=== PATIENT | female | born 1965 | race Caucasian/White ===

== ENCOUNTER → 2023-09-22 16:04 | Outpatient (BNVA) | payer BC, SELFPAY | PROVIDERS: PCP Nurse Practitioner Family; Visit Provider Specialist | DX: G31.84 Mild cognitive impairment of uncertain or unknown etiology (principal); R29.90 Unspecified symptoms and signs involving the nervous system; Z79.899 Other long term (current) drug therapy | CPT/HCPCS: 36415; 82607; 82746; 84443; 85651 ==

== ENCOUNTER 2023-10-24 14:29 | Outpatient (CLI) | payer OTHER, SELFPAY ==
--- NOTE | 2023-10-24 15:15 | MR_ITS ---
WS: [id number] MRI HEAD WITHOUT CONTRAST TECHNIQUE: Sagittal T1, T2 axial, T2 axial FLAIR, axial and coronal T1 images, axial susceptibility w eighted imaging, axial diffusion weighted images, and coronal T2 images were obtained. CLINICAL INFORMATION: G31.84 - Mild cognitive impairment of uncertain or unknow... COMPARISON: None. FINDINGS: No evidence of restricted diffusion to suggest acute ischemia. Ventricular system and basilar cistern s are patent. Mild small vessel changes. Mild parenchymal volume loss. Normal posterior fossa. Normal vascular flow voids at the skull base. No extra-axial fluid collections. No evidence of mass or mass effect. Mild mucosal thickening in the paranasal sinuses. Mastoid air cells are well aerated. Single tiny punctate focus of hemosiderin in the RIGHT basal ganglia. Normal optic chiasm and pituita ry infundibulum. Mild symmetric atrophy temporal lobes and hippocampal formations. IMPRESSION: 1. No evidence of restricted diffusion to suggest acute ischemia. 2. Mild small vessel changes with mild parenchymal volume loss. 3. Single punctate focus of hemosiderin in the RIGHT basal ganglia. 4. Normal optic chiasm and pituitary infundibulum. 5. Mild mucosal thickening in the paranasal sinuses. Mastoid air cells are well aerated.
== END 2023-10-24 14:30 | disposition home or self-care (01) ==
LOC: RAD 14:31
PROVIDERS: PCP Nurse Practitioner Family; Visit Provider Specialist
DX: G31.84 Mild cognitive impairment of uncertain or unknown etiology (principal); R29.90 Unspecified symptoms and signs involving the nervous system; I67.89 Other cerebrovascular disease
CPT/HCPCS: 70551

== ENCOUNTER → 2024-04-07 11:52 | Outpatient (BNVA) | payer BC, SELFPAY | PROVIDERS: PCP Nurse Practitioner Family; Visit Provider Specialist | DX: G31.84 Mild cognitive impairment of uncertain or unknown etiology (principal) | CPT/HCPCS: 36415; 82542 ==

== ENCOUNTER → 2024-07-29 15:01 | Outpatient (BNVA) | payer BC, SELFPAY | PROVIDERS: PCP Nurse Practitioner Family; Visit Provider Specialist | DX: G31.84 Mild cognitive impairment of uncertain or unknown etiology (principal) | CPT/HCPCS: 0346U; 36415 ==

== ENCOUNTER → 2024-10-29 12:36 | Outpatient (BNVA) | payer OTHER, SELFPAY | PROVIDERS: PCP Nurse Practitioner Family; Visit Provider Specialist | DX: G31.84 Mild cognitive impairment of uncertain or unknown etiology (principal); R29.90 Unspecified symptoms and signs involving the nervous system | CPT/HCPCS: 36415; 83520 ==

== ENCOUNTER 2025-03-16 14:21 | Outpatient (CLI) | payer OTHER, SELFPAY ==
--- NOTE | 2025-03-16 14:24 | MR_ITS ---
WS: [id number] MRI HEAD WITHOUT CONTRAST TECHNIQUE: Sagittal T1, T2 axial, T2 axial FLAIR, axial and coronal T1 images, axial susceptibility weighted imaging, axial diffusion weighted images, and coronal T2 images were obtained. CLINICAL INFORMATION: G31.84 - Mild cognitive impairment of uncertain or unknow... COMPARISON: MRI 10/24/2023 FINDINGS: No evidence of restricted diffusion to suggest acute ischemia. Ventricular system and basilar cisterns are patent. Normal posterior fossa. Normal vascular flow voids at the skull base. No extra-axial fluid collections. No evidence of mass or mass effect. Paranasal sinuses are well aerated. Small retention cysts in the LEFT maxillary sinus partially visualized. Mastoid air cells are well aerated. Normal posterior nasopharynx. Mild small vessel changes stable compared to previous. No significant progression. Mild parenchymal volume loss. Normal optic chiasm and pituitary infundibulum. Mild symmetric atrophy temporal lobes and hippocampal formations. Punctate focus of hemosiderin in the RIGHT basal ganglia better seen on the prior study. Susceptibility weighted images today degraded by motion artifact. MR/MR head wo con* [id number] IMPRESSION: 1. No significant changes compared to previous. 2. No restricted diffusion to suggest acute ischemia. 3. Mild small vessel changes with mild parenchymal volume loss appears stable. No significant progression. 4. Mild symmetric atrophy temporal lobes and hippocampal formations appear sta ble. 5. Single punctate focus of hemosiderin in the RIGHT basal ganglia better seen on the prior study. 6. No other acute findings.
== END 2025-03-16 14:22 | disposition home or self-care (01) ==
LOC: RAD 14:23
PROVIDERS: PCP Nurse Practitioner Family; Visit Provider Specialist
DX: G31.84 Mild cognitive impairment of uncertain or unknown etiology (principal); R93.0 Abnormal findings on diagnostic imaging of skull and head, not elsewhere classified; G31.89 Other specified degenerative diseases of nervous system; M27.40 Unspecified cyst of jaw
CPT/HCPCS: 70551

== ENCOUNTER → 2025-08-08 13:32 | Outpatient (BNVA) | payer MEDICARE, SELFPAY | PROVIDERS: PCP Nurse Practitioner Family; Visit Provider Specialist | DX: G31.84 Mild cognitive impairment of uncertain or unknown etiology (principal); G30.9 Alzheimer's disease, unspecified; M54.50 Low back pain, unspecified | CPT/HCPCS: 36415; 80053; 84439; 84443; 84481; 85025; 99214 ==